=== PATIENT | female | born 1955 | race Caucasian/White ===

== ENCOUNTER 2018-02-17 09:44 | Outpatient (CLI) | payer BC | END 2018-02-17 09:45 | disposition home or self-care (01) | LOC: BICMAMMO 09:44 | PROVIDERS: ATTEND Internal Medicine | DX: Z12.31 Encounter for screening mammogram for malignant neoplasm of breast (principal); Z13.820 Encounter for screening for osteoporosis; M85.80 Other specified disorders of bone density and structure, unspecified site; Z78.0 Asymptomatic menopausal state; D50.8 Other iron deficiency anemias | CPT/HCPCS: 77063; 77067; 77080 ==

== ENCOUNTER 2019-02-05 07:41 | Outpatient (CLI) | payer BC ==
[2019-02-05] MEDS ORDERED: Iopamidol 370 76% 100 ML VIAL ONE (09:00)
--- NOTE | 2019-02-05 10:52 | CT ---
CT ABDOMEN AND PELVIS PERFORMED WITH CONTRAST ENHANCEMENT: Date: 02/05/19 HISTORY: Breast cancer. Patient has had some recent weight loss. COMPARISON: 09/17/15 CT, which is most recent available. FINDINGS: The lung bases are clear of infiltrates. No pulmonary nodules or pleural effusions. Small hiatal her tyra is noted. The liver, spleen, pancreas, and gallbladder regions appear unremarkable. Right and left adrenal glands, and right and left kidneys are normal in size. No significant periaort ic or mesenteric adenopathy. Moderate amount of stool is seen throughout the colon. CT of pelvis was performed with contrast enhancement. No evidence of any significant adenopathy, mass , or free fluid. Review of osseous structures show no lytic or blastic bony change. IMPRESSION: Stable CT abdomen and pelvis. No evidence for metastatic disease. POS: [facility]
== END 2019-02-05 07:42 | disposition home or self-care (01) ==
LOC: SCSCT 07:41
PROVIDERS: ATTEND Internal Medicine Hematology & Oncology
DX: C50.919 Malignant neoplasm of unspecified site of unspecified female breast (principal); R63.4 Abnormal weight loss; R79.9 Abnormal finding of blood chemistry, unspecified
CPT/HCPCS: 74177; Q9967

== ENCOUNTER 2019-02-05 12:05 | Outpatient (CLI) | payer BC ==
--- NOTE | 2019-02-08 14:02 | MMO ---
Bilateral MAMMO Bilat Screen [facility]. CLINICAL HISTORY: Patient is 63 years old and is seen for screening. The patient has the following family history of breast cancer: maternal aunt, at age 40 and cousin female, x4. The patient has a history of left Mastectomy at age 42 - malignant. VIEWS: The views performed were: right craniocaudal with tomosynthesis and right mediolateral oblique with tomosynthesis. FILMS COMPARED: The present examination has been compared to prior imaging studies performed at [facility] on 02/17/2018, and at [facility] on 09/22/2012, 05/10/2014, 09/15/2015 and 09/07/2016. MAMMOGRAM FINDINGS: There are scattered fibroglandular densities. There are no suspicious masses, suspicious calcifications, or new areas of architectural distortion. IMPRESSION: THERE IS NO MAMMOGRAPHIC EVIDENCE OF MALIGNANCY. A ROUTINE FOLLOW-UP MAMMOGRAM IN 1 YEAR IS RECOMMENDED. THE RESULTS OF THIS EXAM WERE SENT TO THE PATIENT. ACR BI-RADS Category 1 - Negative MAMMOGRAPHY NOTE: 1. A negative mammogram report should not delay a biopsy if a dominant of clinically suspicious mass is present. 2. Approximately 10% to 15% of breast cancers are not detected by mammography. 3. Adenosis and dense breasts may obscure an underlying neoplasm.
== END 2019-02-05 12:06 | disposition home or self-care (01) ==
LOC: BICMAMMO 12:05
PROVIDERS: ATTEND Internal Medicine
DX: Z12.31 Encounter for screening mammogram for malignant neoplasm of breast (principal); Z80.3 Family history of malignant neoplasm of breast; Z90.12 Acquired absence of left breast and nipple; Z85.3 Personal history of malignant neoplasm of breast
CPT/HCPCS: 77063; 77067

== ENCOUNTER 2019-03-16 07:06 | Outpatient (CLI) | payer BC ==
--- NOTE | 2019-03-16 07:50 | RAD ---
Exam: Chest 2 views HISTORY:Epigastric pain Comparison: None FINDINGS: Lungs: Hyperinflated. Cardiac silhouette: Normal size Pulmonary vessels: Normal Pleural Spaces: Clear Pneumothorax: None Surgical clips overlie left axilla Osseous abnormalities: Bilateral shoulder prostheses IMPRESSION: COPD No lobar consolidation
--- NOTE | 2019-03-16 07:54 | ULT ---
Abdominal Ultrasound: Hepatic Doppler ultrasound with grayscale and color flow imaging, spectral analysis INDICATION: Pain FINDINGS: Liver: Normal Gallbladder: Cholelithiasis. Gallbladder wall: Normal. Castro's Sign: Negative Common bile duct is borderline at 7 mm in diameter Ascites: None Spleen: Unremarkable. Pancreas: Partially obscured by bowel content, limiting assessment. Kidneys: No acute abnormalities. Aorta/IVC: No acute process. Hepatic Doppler and splenic Doppler evaluation reveals appropriate patency and directionality of flow . IMPRESSION: Cholelithiasis with borderline-sized common duct. Correlate with biliary laboratory values Unremarkable Doppler examination.
== END 2019-03-16 07:07 | disposition home or self-care (01) ==
LOC: BICULT 07:06
PROVIDERS: ATTEND Internal Medicine Gastroenterology
DX: R94.5 Abnormal results of liver function studies (principal); R63.4 Abnormal weight loss; R10.13 Epigastric pain; J44.9 Chronic obstructive pulmonary disease, unspecified; K80.20 Calculus of gallbladder without cholecystitis without obstruction
CPT/HCPCS: 71046; 76700

== ENCOUNTER 2020-02-18 14:04 | Outpatient (CLI) | payer BC ==
[~2020-02-18 14:04] MED LIST: Magnevist 469MG/ML 20 ML VIAL ONE
--- NOTE | 2020-02-18 15:50 | MRI ---
MRI cervical spine with and without contrast: 02/18/2020 HISTORY: 64-year-old female with history of "C 50.312 left breast cancer and "presents with "M 54.2 neck pain and R 93.7 abnormal findings on diagnostic imaging of other musculoskeletal system" Z 85.3 partial history of malignant neoplasm of breast COMPARISON: None FINDINGS: No evidence of abnormal signal, mass, abnormal enhancement, or syrinx, involving cervical spinal cord . No evidence of mass or abnormal enhancement in the spinal canal, bone marrow, or perivertebral tissues. Vertebral body heights are maintained. Left-sided moderate facet DJD at C3-4 and C4-5, and m ild to moderate facet DJD at lower levels on the left. C1-2: No central stenosis C2-3: No high-grade central or high-grade neural foraminal stenosis. C3-4: Mild central and bilateral paracentral broad-based disc-osteophyte complex. No high-grade centr al stenosis. Small bilateral uncinate process osteophytes, left greater than right. Mild to moderate right neural foraminal stenosis. Moderate left neural foraminal stenosis. C4-5: Right lateral-paracentral small focal disc herniation or disc-osteophyte complex slightly inden ts the right anterolateral aspect of spinal cord. This is superimposed on a shallow, broad-based disc-osteophyte complex. Overall moderate antral spinal canal stenosis. Small bilateral uncinate proc ess osteophytes, right greater than left. Moderate right neural foraminal stenosis. Mild left neural foraminal stenosis. C5-6: Moderate size right uncinate process osteophytes cause severe right neural foraminal stenosis. Smaller left uncinate process osteophytes cause mild to moderate left neural foraminal stenosis. Broad-based disc-osteophytic bar complex abuts and slightly indents the ventral surface of spinal cor d. Mildly thickened ligamentum flavum abuts the dorsal surface of spinal cord. Overall somewhat severe central spinal canal stenosis. C6-7: Broad-based disc-osteophytic bar complex. Mild central stenosis. Bilateral uncinate process ost eophytes. Moderate right neural foraminal stenosis. Mild left neural foraminal stenosis. C7-T1: No central or neural foraminal stenosis. IMPRESSION: 1. No evidence of metastatic disease. 2. Cervical spondylosis, with multilevel neural foraminal stenosis (including severe on right at C5-6 ), and central spinal canal stenosis (worst at C5-6).
== END 2020-02-18 14:05 | disposition home or self-care (01) ==
LOC: TBSIIMAG 14:04
PROVIDERS: ATTEND Internal Medicine Hematology & Oncology
DX: C50.312 Malignant neoplasm of lower-inner quadrant of left female breast (principal); M54.2 Cervicalgia; R93.7 Abnormal findings on diagnostic imaging of other parts of musculoskeletal system; M47.812 Spondylosis without myelopathy or radiculopathy, cervical region; M48.02 Spinal stenosis, cervical region
CPT/HCPCS: 72156; 82565; A9579

== ENCOUNTER 2023-02-17 14:15 | Outpatient (CLI) | payer BC | END 2023-02-17 14:16 | disposition home or self-care (01) | LOC: BICMAMMO 14:15 | PROVIDERS: ATTEND Internal Medicine | DX: Z12.31 Encounter for screening mammogram for malignant neoplasm of breast (principal); Z13.820 Encounter for screening for osteoporosis; M85.89 Other specified disorders of bone density and structure, multiple sites; Z78.0 Asymptomatic menopausal state; Z80.3 Family history of malignant neoplasm of breast; Z90.12 Acquired absence of left breast and nipple | CPT/HCPCS: 77063; 77067; 77080 ==